=== PATIENT | male | born 1990 | race Caucasian/White ===

== ENCOUNTER 2018-01-25 14:51 | Emergency (ER) | payer OTHER ==
[2018-01-25 15:01] VITALS: BP 122/78
[2018-01-25] MEDS ORDERED: CEPHALEXIN 500 MG CAP PO ONE (15:16)
--- NOTE | 2018-01-25 15:17 | EDPHY ---
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 He sustained a partial degloving injury to the ulnar aspect of his right palm. No paresthesia. No sensory or motor deficit distally. No foreign body sensation. PHYSICAL EXAM (Prior to examination, patient consented to physical exam, hands were washed and my usual and customary physical exam procedures followed) 1) GENERAL: Well-developed, well-nourished, alert and oriented. Appears to be in no acute distress. 2) HEAD: Normocephalic 3) HEENT: sclera anicteric 4) LUNGS: Breathing comfortably. 5) SKIN: Right hand: On the right palm ulnar aspect patient has a 6 cm flap laceration hinging on the ulnar aspect with viable flap tissue. Visible adipose tissue and partial muscle laceration noted. No foreign body visualized or palpated. Normal coloration distally. Normal temperature distally. 6) MUSCULOSKELETAL: FDS FDP function intact distally to all digits. No osseous fragments visualized 7) NEUROLOGIC: Full sensation two-point discrimination intact all digits distally. Smoking Status: Never smoked Constitutional: Initial Vital Signs Temperature (C) 36.4 C 01/25/18 14:58 Heart Rate 97 01/25/18 14:58 Respiratory Rate 18 01/25/18 14:58 Blood Pressure 122/78 H 01/25/18 14:58 O2 Sat (%) 95 01/25/18 14:58 O2 Delivery Mode Room Air Allergies/Adverse Reactions: No Known Allergies Allergy (Unverified 01/25/18 15:01) Home Medications: Medication Instructions Recorded Cephalexin [Keflex] 500 mg PO TID 7 Days cap 01/25/18 Hydrocodone/APAP 5/325 [Robbins 1 tab PO Q6 PRN #7 tab 01/25/18 5/325 (RX)] MDM/Departure - MDM Procedures: Procedure: Laceration repair. After consultation with hand surgeon, I explained the indications, risks and benefits for both laceration repair and anesthetic administration. Verbal consent was obtained from the patient. The laceration on the right hand was anesthetized using 0.5% bupivicaine without epinephrine . After anesthetic administered the patient was observed for a period of time and had no apparent adverse effects. The wound was cleaned, prepped, draped in normal sterile fashion and explored to its base. No foreign body seen, no foreign bodies palpated. There were deep structures involved. Partial laceration of the muscle is noted. Skin is gently closed with a total of 10 simple interrupted 5 O Prolene sutures.. The wound repair was complex. The procedure was performed by myself. Patient has been informed that scarring will occur, although efforts have been made to minimize this. Procedure: Splint An ulnar gutter Ortho Glass splint was applied by ER food science technician. After application of the splint I returned and re-examined the patient. The splint was adequately immobilizing the joint and distal to the splint the patient's circulation and sensation were intact. Patient shows no signs of compartment syndrome. Was given orthopedic precautions. Medications Given: Discontinued Medications Cephalexin HCl (Keflex) 500 mg PO EDNOW ONE PRN Reason: Protocol Stop: 01/25/18 15:17 Last Admin: 01/25/18 15:22 Dose: 500 mg ED Course/Re-evaluation: Patient verbally consented to showing of non identifying photo of injury with on -call hand surgeon. I electronically communicated with Dr. Prince King 345 p.m. who reviewed the patient's is photos, recommended closure of the skin, splint, follow up in office. See procedure note. He is started on prophylactic antibiotics. Reviewed the x-rays the patient showing no definitive osseous abnormality or radiopaque foreign body. Patient will follow up with Dr. Prince King tomorrow. Given my usual and customary wound precautions and instructions. Care of patient under supervision of primary supervising physician Dr Harris . - Depart Disposition: Home, Routine, Self-Care Clinical Impression: Laceration of hand Qualifiers: Encounter type: initial encounter Foreign body presence: without foreign body Laterality: right Qualified Code(s): S61.411A - Laceration without foreign body of right hand, initial encounter Condition: Good Instructions: Laceration (ED) Additional Instructions: Return to the ER if you develop redness, swelling, discharge, warmth to the wound, red streaks going up your arm, or any other symptoms that concern you. Prescriptions: Cephalexin [Keflex] 500 mg PO TID 7 Days cap Hydrocodone/APAP 5/325 [Robbins 5/325 (RX)] 1 tab PO Q6 PRN #7 tab PRN Reason: Pain, Severe Referrals: Prince King MD [Medical Doctor] - 1-2 days without fail
== END 2018-01-25 16:36 | disposition home or self-care (01) ==
PROC: 0HQFXZZ Repair Right Hand Skin, External Approach (ICD-10-PCS; principal; 2018-01-25)
DX: S61.411A Laceration without foreign body of right hand, initial encounter (principal); W26.8XXA Contact with other sharp object(s), not elsewhere classified, initial encounter; Y99.0 Civilian activity done for income or pay